=== PATIENT | male | born 1930 | race Caucasian/White ===

== ENCOUNTER 2020-04-07 10:49 | Inpatient (IN) | payer OTHER, BC ==
[~2020-04-07] VITALS: Ht 172.7 cm; Wt 79.1 kg
[2020-04-07 11:30] VITALS: BP 131/55
--- NOTE | 2020-04-07 14:21 | 2DMMODE ---
[facility] [place] [address] 2 D/M-MODE ECHOCARDIOGRAM Name: ARTURO QUIROZ Room #: 208-P ADM IN M.R.#: [id number] Admission: 04/07/20 Attend Phys: Jp Ely MD, Discharge: Date of : [birth year] Report #: [id number] THIS REPORT FOR: cc: CLAU - Dora family physician/PCP FAM - No family physician/PCP Jp Ely MD [facility] ~ APPROVED REPORT Study performed: 04/07/2020 13:28:37 EXAM: Comprehensive 2D, Doppler, and color-flow Echocardiogram Patient Location: Bedside Room #: 208 Status: routine BSA: 1.91 HR: 39 bpm BP: 131/53 mmHg Rhythm: Bradycardia Other Information Study Quality: Adequate Indications Atrial Fibrillation Bradycardia 2D Dimensions RVDd: 44.44 mm IVSd: 9.38 (7-11mm) LVOT Diam: 24.30 (18-24mm) LVDd: 70.83 mm PWd: 10.18 (7-11mm) Ascending Ao: 34.05 (22-36mm) LVDs: 59.84 (25-40mm) Aortic Root: 34.84 mm IVC: 32.00 mm Volumes Left Atrial Volume (Systole) Single Plane 4CH: 121.10 mL Single Plane 2CH: 95.22 mL LA ESV Index: 60.00 mL/m2 Aortic Valve AoV Peak Tushar.: 1.81 m/s AO Peak Gr.: 13.13 mmHg LVOT Max P.87 mmHg LVOT Max V: 0.85 m/s IVÁN Vmax: 2.17 cm2 [facility] [address] [place] [address] 2 D/M-MODE ECHOCARDIOGRAM Name: RICHIEARTURO LEVI Room #: 208-P [facility] IN .R.#: [id number] Admission: 04/07/20 Attend Phys: Jp Ely, Discharge: Date of : [birth year] Report #: [id number] Pulmonary Valve PV Peak Tushar.: 0.91 m/s PV Peak Gr.: 3.34 mmHg Tricuspid Valve TR Peak Tushar.: 4.21 m/s TR Peak Gr.: 70.78 mmHg PA Pressure: 81.00 mmHg Left Ventricle Left ventricle is dilated. There is severe global hypokinesis of the left ventricle. There is normal left ventricular wall thickness. Left ventricular ejection fraction is severely decreased. LVEF is 30-35%. This study is not technically sufficient to allow evaluation of the LV diastolic function due to atrial fibrillation. Right Ventricle Right ventricle is dilated. Right ventricle is borderline hypokinetic. Atria Left atrium is dilated. Right atrium is dilated. Aortic Valve The aortic valve is normal in structure. The Aortic valve is sclerotic. Mild aortic regurgitation. There is no aortic valvular stenosis. Mitral Valve The mitral valve is normal in structure. Mild to moderate mitral regurgitation. No evidence of mitral valve stenosis. Tricuspid Valve The tricuspid valve is normal in structure. There is mild to moderate tricuspid regurgitation. Estimated PAP 71 mmHg. There is severe pulmonary hypertension. Pulmonic Valve The pulmonary valve is normal in structure. Trace to mild pulmonic regurgitation. Great Vessels The aortic root is normal in size. IVC is dilated and collapses <50% with inspiration. Pericardium [facility] [address] [place] [address] 2 D/M-MODE ECHOCARDIOGRAM Name: ARTURO QUIROZ Room #: 208-P [facility] IN .R.#: [id number] Admission: 04/07/20 Attend Phys: Jp Ely, Discharge: Date of : [birth year] Report #: [id number] There is no pericardial effusion. <Conclusion> Left ventricle is dilated. Left ventricular ejection fraction is severely decreased. There is severe global hypokinesis of the left ventricle. LVEF is 30-35%. This study is not technically sufficient to allow evaluation of the LV diastolic function due to atrial fibrillation. Right ventricle is dilated. Right ventricle is borderline hypokinetic. Left atrium is dilated. Right atrium is dilated. Mild aortic regurgitation. Mild to moderate mitral regurgitation. There is mild to moderate tricuspid regurgitation. Estimated PAP 71 mmHg. There is severe pulmonary hypertension. The aortic root is normal in size. There is no pericardial effusion. <ELECTRONICALLY SIGNED> By: Jp Ely MD, FACC 04/07/20 1420 142 142 Jp Ely MD, [facility] /INF
[2020-04-07 15:19] LABS: HEMATOCRIT 31.8 % (42.0-52.0); HEMOGLOBIN 10.6 gm/dL (14.0-18.0); MCH 36.1 pg (26.0-34.0); MCHC 33.4 g/dL (28.0-37.0); MCV 108.2 fL (80.0-100.0); RBC 2.94 mil/uL (4.50-6.00); RDW 14.6 % (10.5-14.5); WBC 4.9 thou/uL (4.0-11.0)
[2020-04-07 15:35] VITALS: BP 126/49
[2020-04-07 15:36] LABS: INR 1.1; PROTIME 11.2 Seconds (9.3-11.4)
[2020-04-07 15:46] LABS: ALBUMIN 3.2 g/dL (3.4-5.0); CALCIUM 8.5 mg/dL (8.5-10.1); CREATININE 1.1 mg/dL (0.7-1.3); POTASSIUM 4.8 mmol/L (3.5-5.1); TOTAL BILIRUBIN 0.4 mg/dL (0.2-1.0); TOTAL PROTEIN 6.4 g/dL (6.4-8.2)
[2020-04-07 16:20] VITALS: BP 126/49
--- NOTE | 2020-04-07 18:26 | NUR ---
PT CARE ASSUMED AT 1130. ASSESSMENT CHARTED. MEDICATION CHARTED. AFIB HX; ASYMPTOMATIC. FROM [place], [place]. SON IS DPOA AND DESIGNATED VISITOR. PACEMAKER PLACEMENT TOMORROW.
[2020-04-07] MEDS ORDERED: AMIODARONE HCL400 MG PO (19:47)
[2020-04-07] MEDS ORDERED: DONEPEZIL HCL 55 M1 PO (19:49)
[2020-04-07] MEDS ORDERED: CLARITIN10 M3 PO (19:50)
[2020-04-07] MEDS ORDERED: COLACE100 MG PO (19:51)
[2020-04-07] MEDS ORDERED: AZELASTINE205.5 MCG/ NARES (19:52)
[2020-04-07] MEDS ORDERED: DEPAKOTE250 MG PO (19:53)
[2020-04-07] MEDS ORDERED: FINASTERIDE5 MG PO (19:55)
[2020-04-07] MEDS ORDERED: LASIX 40 MG TAB40 MG PO (19:56)
[2020-04-07] MEDS ORDERED: LEXAPRO 10 MG T10 M2 PO (19:57)
[2020-04-07] MEDS ORDERED: KLOR-CON 10 ER10 MEQ PO ×2 (19:58→19:59)
[2020-04-07] MEDS ORDERED: SALINE NASAL SP88 ML NASAL (20:01)
[2020-04-07] MEDS ORDERED: FLOMAX0.4 MG PO (20:02)
[2020-04-07] MEDS ORDERED: ARTIFICIAL TEAR1510 OPHTHALMIC (20:08)
[2020-04-07] MEDS ORDERED: SLOW FE142 MG PO (20:10)
[2020-04-07] MEDS ORDERED: HYDROCORTISONE30 GM TOP (20:12)
[2020-04-07 20:45] VITALS: BP 120/46
--- NOTE | 2020-04-08 00:30 | NUR ---
ASSUMED PT CARE AT 1900, PT IS AWAKE, ALERT AND ORIENTED WITH CONFUSION NOTED, BRADYCARDIA ON THE MONITOR, ASSESSMENTS CHARTED, DENIES PAIN, VSS, RESTING IN BED, NO DISTRESS NOTED AT THIS TIME WILL CONTINUE TO MONITOR
[2020-04-08 04:45] VITALS: BP 132/42
[2020-04-08 08:00] VITALS: BP 134/48
[2020-04-08 11:35] VITALS: BP 134/46
--- NOTE | 2020-04-08 13:57 | NUR ---
Case opened to follow for dc planning. 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 He has lived there for several years. He is normally up with a rwalker in the hallways but has been at w/c level due to cardiac issues. He is getting a pacermaker placed today and will likely be ready for dc back to the senior care tomorrow. Foundation Relations Director spoke with Елена COLLINS at the senior care and they are holding his bed for his return. Dc program services planner to fax clinical update today including his covid neg test. Pt's son PJ is his dpoa and copy is on the chart. He indicates that he will be providing transport back to the senior care tomorrow. [facility] alerted to likely dc tomorrow. Weekend staff to fax dc summary and instructions to [phone], then call the [facility]en to confirm [phone] receipt of orders and any med changes for their pharmacy delievery. After which, report needs to be called to [phone]. A complete chart copy needs to be sent with the pt's son for the facility. The pt is alert and orient to person and sometimes place. He has dementia. He requires med mngmt and assist with adl's. Pt to return to correction care vs skilled.
--- NOTE | 2020-04-08 16:16 | NUR ---
FAXED CLINICAL UPDATE TO [facility] RECEIVED CONFIRMATION AND LEFT MSG WITH TAHIR IN ADM. DP TO FOLLOW.
[2020-04-08] MEDS ORDERED: DEMADEX20 MG PO (16:18)
[2020-04-08 16:20] VITALS: BP 129/62
--- NOTE | 2020-04-08 18:52 | NUR ---
PT CARE ASSUMED AT 0700. ASSESSMENT CHARTED. MEDICATION CHARTED. PT NPO UNTIL 1330 FOR PPM PLACEMENT. PT UP AT 45 DEGREES UNTIL 2024. BATHROOM PRIVLEGES. LT SUBCLAVIAN.
[2020-04-08 20:20] VITALS: BP 121/54
[2020-04-08 23:30] VITALS: BP 129/56
--- NOTE | 2020-04-09 03:36 | NUR ---
A/O X 3.BEDREST.HOB ELEVATED.LEFT ARM SLING INTACT.TYLENOL GIVEN FOR PAIN.MONITOR SHOWS AV PACED RHYTHM.POC CONTINUED.
[2020-04-09 04:20] VITALS: BP 128/54
[2020-04-09 05:56] LABS: HEMATOCRIT 29.2 % (42.0-52.0); HEMOGLOBIN 9.8 gm/dL (14.0-18.0); MCH 36.6 pg (26.0-34.0); MCHC 33.6 g/dL (28.0-37.0); MCV 108.9 fL (80.0-100.0); RBC 2.68 mil/uL (4.50-6.00); RDW 14.4 % (10.5-14.5); WBC 4.5 thou/uL (4.0-11.0)
[2020-04-09 06:20] LABS: CALCIUM 8.2 mg/dL (8.5-10.1); CREATININE 0.9 mg/dL (0.7-1.3); POTASSIUM 3.7 mmol/L (3.5-5.1)
[2020-04-09 08:30] VITALS: BP 123/57
[2020-04-09 08:40] VITALS: BP 123/57
--- NOTE | 2020-04-09 11:35 | NUR ---
ASSUMED CARE AT SHIFT CHANGE, ALERT AND ORIENTED X3-4. MEDICATION AND DISCHARGE INSTRUCTIONS GIVEM TO PATIENT AND SON, SON VERBALIZED UNDERSTANDING. REPORT CALLED TO PATIENT FACILITY AND PATIENT DISCHAGED WITH SON.
--- NOTE | 2020-04-09 11:44 | EKG ---
[facility] [place] [address] ELECTROCARDIOGRAM REPORT Name: ARTURO QUIROZ Room #: 208-P ADM IN M.R.#: [id number] Admission: 04/07/20 Attend Phys: Jp Ely MD, Discharge: Date of : [birth year] Report #: [id number] THIS REPORT FOR: cc: FAM - No family physician/PCP FAM - No family physician/PCP Jm Mauro MD ~ THIS REPORT FOR: //name// [facility] Test Date: 2020-04-07 Test Time: 13:18:32 Pat Name: ARTURO QUIROZ Department: Room: 208 P Gender: M [facility] 1930 Requested By: Cherri Rene Order Number: [id number] MD: Jm Mauro Measurements Intervals [place] Rate: 39 P: -86 NV: 445 QRS: 252 QRSD: 174 T: 59 QT: 647 QTc: 522 Interpretive Statements 2:1 heart block. RBBB Compared to ECG 07/29/2009 07:50:42 Electronically Signed On 04-09-2020 11:44:03 CDT by Jm Mauro [email or web address] <ELECTRONICALLY SIGNED> By: Jm Mauro MD 04/09/20 1144 1318 1318 Jm Mauro MD /EPI
--- NOTE | 2020-04-09 11:47 | EKG ---
[facility] [place] [address] ELECTROCARDIOGRAM REPORT Name: ARTURO QUIROZ Room #: 208-P ADM IN M.R.#: [id number] Admission: 04/07/20 Attend Phys: Jp Ely MD, Discharge: Date of : [birth year] Report #: [id number] THIS REPORT FOR: cc: FAM - No family physician/PCP FAM - No family physician/PCP Jm Mauro MD ~ THIS REPORT FOR: //name// [facility] Test Date: 2020-04-08 Test Time: 07:17:44 Pat Name: ARTURO QUIROZ Department: Room: 208 P Gender: M Telegraph Dispatcher: Juan Ramon ALONZO : 1930 Requested By: Jp Ely Order Number: [id number] MD: Jm Mauro Measurements Intervals [place] Rate: 35 P: [place]: QRS: 257 QRSD: 181 T: 141 QT: 594 QTc: 454 Interpretive Statements 2:1 AV block Intraventricular conduction delay now present Electronically Signed On 04-09-2020 11:46:50 CDT by Jm Mauro [email or web address] <ELECTRONICALLY SIGNED> By: Jm Mauro MD 04/09/20 1146 6 6 Jm Mauro MD /[place]
--- NOTE | 2020-04-09 11:48 | EKG ---
[facility] [place] [address] ELECTROCARDIOGRAM REPORT Name: ARTURO QUIROZ Room #: 208-P ADM IN M.R.#: [id number] Admission: 04/07/20 Attend Phys: Jp Ely MD, Discharge: Date of : [birth year] Report #: [id number] THIS REPORT FOR: cc: CLAU - No family physician/PCP FAM - No family physician/PCP Jm Mauro MD ~ THIS REPORT FOR: //name// [facility] Test Date: 2020-04-08 Test Time: 08:13:12 Pat Name: ARTURO QUIROZ Department: Room: 208 P Gender: M Weight And Balance Control Agent: Juan Ramon ALONZO : 1930 Requested By: Cherri Rene Order Number: [id number] MD: Jm Mauro Measurements Intervals [place] Rate: 37 P: [place]: QRS: 249 QRSD: 179 T: 114 QT: 626 QTc: 492 Interpretive Statements Likely complete heart block Compared to ECG 07/29/2009 07:50:42 Electronically Signed On 04-09-2020 11:47:50 CDT by Jm Mauro [email or web address] <ELECTRONICALLY SIGNED> By: Jm Mauro MD 04/09/20 1147 2 2 Jm Mauro MD /EPI
--- NOTE | 2020-04-19 16:00 | D ---
[facility] [place] [address] DISCHARGE SUMMARY Name: ARTURO QUIROZ Room #: 208-P [facility] IN M.R.#: [id number] Admission: 04/07/20 Attend Phys: Jp Ely MD, Discharge: 04/09/20 Date of : [birth year] Report #: [id number] THIS REPORT FOR: cc: CLAU - No family physician/PCP CLAU - Dora family physician/PCP Jm Mauro MD ~ THIS REPORT FOR: //name// CC: CLAU physician/PCP Jp Ely DISCHARGE DIAGNOSES: 1. Symptomatic bradycardia secondary to complete heart block. 2. 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 3. Ischemic cardiomyopathy. 4. Coronary artery disease, status post coronary artery bypass graft. 5. Atrial fibrillation. PROCEDURE PERFORMED: Dual-chamber pacemaker implantation. HISTORY OF PRESENT ILLNESS: The patient is an 89-year-old male with history of coronary artery disease, ischemic cardiomyopathy, who lives in a care facility and had been experiencing increased symptomatic bradycardia. When he was admitted, he was noted to be in heart block with acute congestive heart failure. The patient was optimized from a heart failure standpoint and yesterday underwent dual chamber pacemaker implantation without complications. HOSPITAL COURSE: He was monitored overnight in the CCU post-pacemaker implantation. On the day of discharge, he was doing well. His device check was within normal limits. His chest x-ray showed no acute process and the patient denied any chest pain or shortness of breath. PHYSICAL EXAMINATION HEART: On exam, his heart was regular rate and rhythm. LUNGS: Clear to auscultation bilaterally. ABDOMEN: Soft, nontender. EXTREMITIES: No clubbing, cyanosis, or edema and his incision was healing nicely. As such, he was deemed stable for discharge home. He will go back to his care facility. He will have a site check performed by the nurse practitioner at the [facility] [address] [place] [address] DISCHARGE SUMMARY Name: ARTURO QUIROZ Room #: 208-P [facility] IN M.R.#: [id number] Admission: 04/07/20 Attend Phys: Jp Ely MD, Discharge: 04/09/20 Date of : [birth year] Report #: [id number] care facility and we will schedule him for a 3-month followup visit in our office. Discharge instructions were reviewed. <ELECTRONICALLY SIGNED> By: Jm Mauro MD 04/19/20 1600 8 0934 Jm Mauro MD /nt
--- NOTE | 2020-04-19 16:00 | P ---
[facility] [place] [address] PROCEDURE REPORT Name: ARTURO QUIROZ Room #: 208-P [facility] IN M.R.#: [id number] Admission: 04/07/20 Attend Phys: Jp Ely MD, Discharge: 04/09/20 Date of : [birth year] Report #: [id number] THIS REPORT FOR: cc: CLAU - No family physician/PCP FAM - No family physician/PCP Jm Mauro MD ~ CC: [facility] physician/PCP Jp Ely PROCEDURE: Pacemaker implantation. PREOPERATIVE DIAGNOSIS: Complete heart block. POSTOPERATIVE DIAGNOSIS: Complete heart block. INDICATIONS: The patient is an 89-year-old with history of coronary artery disease, CABG as well as ischemic cardiomyopathy, who has been having increased fatigue, lightheadedness, and found to be in complete heart block. He is here for a dual chamber pacemaker implantation. ANESTHESIA: The patient underwent MAC anesthesia with no anesthesia related complications. DESCRIPTION OF PROCEDURE: The patient underwent informed consent. We discussed the details of the procedure including the risks, which include but not limited to bleeding, infection, vascular damage, cardiac perforation and pneumothorax. I also discussed his case with his son who is a nurse and who preferred placing dual chamber pacemaker in his father who has advanced age. The patient was brought to EP laboratory in fasting and sedated state, prepped and draped in a sterile fashion, underwent venogram showing patency of left axillary vein and received IV antibiotics prior to initiation of the procedure. Next, lidocaine was injected below the level of left clavicle. Incision was made, pocket was created over prepectoral fascia. Next obtained twice to left axillary vein using the extrathoracic approach with sheaths positioned using the modified Seldinger technique. Next RV lead was placed into the right ventricular outflow tract. Of note, the patient did have severe tricuspid regurgitation, which made it difficult to position the lead into the right ventricular apex, but I was able to get this into the high right ventricular septum with good R wave and good pacing threshold. I then positioned the atrial lead in the right atrial appendage with adequate pacing and sensing thresholds. The leads were then sutured to the prepectoral fascia. Device was connected to the leads. Tug tests were performed and a pocket was irrigated with vancomycin. The pocket was closed in 2 layers using 2-0 for the deep layer, 3-0 for the middle layer. Surgical glue was placed to outer skin layer. The patient awoke neurologically and hemodynamically intact. No complications and no significant bleed. [facility] [address] [place] [address] PROCEDURE REPORT Name: ARTURO QUIROZ Room #: 208-P [facility]#: [id number] Admission: 04/07/20 Attend Phys: Jp Ely MD, Discharge: 04/09/20 Date of : [birth year] Report #: [id number] The implanted pacemaker was a Medtronic model #W3DR01, serial #[id number]. Atrial lead was a Medtronic model #5076, serial #[id number]. The RV lead was a model #5076, serial #[id number]. The atrial lead demonstrated a P-wave of 1 millivolt, pacing impedance of 496 ohms and the pacing threshold 0.5 volts at 0.4 milliseconds. The RV lead demonstrated R waves that were 6.1 millivolts, pacing impedance of 551 ohms and the pacing threshold 0.5 volts at 0.4 milliseconds. The device was programmed to DDDR 60-130 mode. CONCLUSIONS: 1. Successful dual-chamber pacemaker implantation. 2. Satisfactory atrial and ventricular pacing and sensing thresholds. <ELECTRONICALLY SIGNED> By: Jm Mauro MD 04/19/20 1600 1519 1819 Jm Mauro MD /nt
== END 2020-04-09 11:30 | DRG 242 ==
LOC: 2N 10:49
PROVIDERS: Nurse Practitioner Adult Health; ADMIT Internal Medicine Cardiovascular Disease; ATTEND Internal Medicine Cardiovascular Disease
PROC: 0JH606Z Insertion of Pacemaker, Dual Chamber into Chest Subcutaneous Tissue and Fascia, Open Approach (ICD-10-PCS; principal; 2020-04-07)
PROC: 02HK3JZ Insertion of Pacemaker Lead into Right Ventricle, Percutaneous Approach (ICD-10-PCS; principal; 2020-04-07)
PROC: 02H63JZ Insertion of Pacemaker Lead into Right Atrium, Percutaneous Approach (ICD-10-PCS; principal; 2020-04-07)
DX: I44.2 Atrioventricular block, complete (principal); I50.23 Acute on chronic systolic (congestive) heart failure; I38 Endocarditis, valve unspecified; I48.0 Paroxysmal atrial fibrillation; I25.5 Ischemic cardiomyopathy; I25.10 Atherosclerotic heart disease of native coronary artery without angina pectoris; Z20.828 Contact with and (suspected) exposure to other viral communicable diseases; N40.0 Benign prostatic hyperplasia without lower urinary tract symptoms; I11.0 Hypertensive heart disease with heart failure; F03.90 Unspecified dementia, unspecified severity, without behavioral disturbance, psychotic disturbance, mood disturbance, and anxiety; Z87.891 Personal history of nicotine dependence; Z90.49 Acquired absence of other specified parts of digestive tract; Z95.1 Presence of aortocoronary bypass graft; Z98.42 Cataract extraction status, left eye; Z98.41 Cataract extraction status, right eye; Z79.899 Other long term (current) drug therapy
CPT/HCPCS: 10797; 62110; 62900; 70005